=== PATIENT | female | born 1975 | race American Indian/Alaskan Native ===

== ENCOUNTER 2017-11-23 17:37 | Emergency (ER) | payer BC, OTHER ==
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
[2017-11-23 19:59] VITALS: BP 119/69
== END 2017-11-23 19:30 | disposition home or self-care (01) ==
LOC: FB.ED 17:37
DX: S63.630A Sprain of interphalangeal joint of right index finger, initial encounter (principal); F32.9 Major depressive disorder, single episode, unspecified; K21.9 Gastro-esophageal reflux disease without esophagitis; Z79.899 Other long term (current) drug therapy; Z88.2 Allergy status to sulfonamides; Z88.1 Allergy status to other antibiotic agents; Y04.8XXA Assault by other bodily force, initial encounter; Y07.01 Husband, perpetrator of maltreatment and neglect
CPT/HCPCS: 99283

== ENCOUNTER 2018-08-28 15:55 | Emergency (ER) | payer OTHER ==
--- NOTE | 2018-08-28 16:27 | EDM.PDOC ---
ED HPI GENERAL MEDICAL PROBLEM - General Chief Complaint: General Stated Complaint: HALLUCINATIONS Time Seen by Provider: 08/28/18 16:00 Source of Information: Reports: Patient, EMS, Old Records History Limitations: Reports: Altered Mental Status - History of Present Illness INITIAL COMMENTS - FREE TEXT/NARRATIVE: Юлия comes into [facility] ED with reported visual hallucinations (worms crawling on face) and concerns these may be related to medications including gabapentin or respiradone. She has a PMH of polysubstance abuse including meth and cannabis. There is no reported head injury or LOC, seizure disorder, although there is reported chronic pain. [facility], no records available. A collateral source reported by phone that she moves around and has been diagnosed schizophrenia in the past. She has no immediate family available, and is not a reliable historian. - Related Data Allergies Allergy/AdvReac Type Severity Reaction Status Date / Time Sulfa (Sulfonamide Allergy Rash Verified 08/28/18 23:29 Antibiotics) Abilify Allergy Rash Uncoded 01/16/16 01:32 Latuda Allergy Rash Uncoded 01/16/16 01:32 Home Meds: Home Meds Escitalopram [Lexapro] 40 mg PO DAILY 11/23/17 [History] Lisinopril 20 mg PO DAILY 11/23/17 [History] OLANZapine [Zyprexa] 15 mg PO DAILY 11/23/17 [History] Omeprazole 20 mg PO DAILY 11/23/17 [History] Past Medical History HEENT History: Reports: Other (See Below) Other HEENT History: eye glasses Cardiovascular History: Reports: Hypertension Gastrointestinal History: Reports: GERD 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: Psychiatric History: Reports: Depression - Infectious Disease History Infectious Disease History: Reports: Chicken Pox - Past Surgical History GI Surgical History: Reports: Other (See Below) Female Surgical History: Reports: Section Social & Family History - Family History Family Medical History: Noncontributory - Caffeine Use Caffeine Use: Reports: None ED ROS GENERAL - Review of Systems Review Of Systems: Unable To Obtain ED EXAM, GENERAL - Physical Exam Exam: See Below Exam Limited By: Altered Mental Status General Appearance: Alert, WD/WN, Anxious Eye Exam: Bilateral Eye: EOMI, Normal Inspection, PERRL Ears: Normal External Exam Nose: Normal Inspection Throat/Mouth: Normal Lips, Normal Oropharynx, Normal Voice, No Airway Compromise Head: Atraumatic, Normocephalic Neck: Normal Inspection, Supple Respiratory/Chest: No Respiratory Distress, Lungs Clear, No Accessory Muscle Use , Chest Non-Tender Cardiovascular: Regular Rate, Rhythm, No Murmur GI/Abdominal: Soft, Non-Tender, No Organomegaly, No Distention, No Mass (Female) Exam: Deferred Rectal (Female) Exam: Deferred Back Exam: Normal Inspection Extremities: Normal Inspection Neurological: Alert, CN II-XII Intact, No Motor/Sensory Deficits, Inattentive, Disoriented Psychiatric: Anxious, Other (hallucinations visual) Skin Exam: Warm, Dry, Intact, Normal Color Lymphatic: No Adenopathy Course - Vital Signs Text/Narrative:: Following initial assessment, a urine drug screen was positive for MDMA and Methamphetamine. Her CPK was elevated to 367 u/l, and IV fluids D5LR x 2 L was started with impending follow up CPK in 4 hours. Ativan 1 mg IV administered for agitation. Case will be managed by ED on-coming and signed out to him. Last Recorded V/S: Last Vital Signs Temp 36.1 C 08/29/18 17:40 Pulse 91 08/29/18 17:40 Resp 20 08/29/18 17:40 BP 140/85 08/29/18 17:40 Pulse Ox 100 08/29/18 17:40 - Orders/Labs/Meds Labs: Laboratory Tests 08/28/18 08/28/18 08/28/18 Range/Units 16:09 16:09 17:05 WBC (4.5-12.0) X10-3/uL RBC (3.23-5.20) x10(6)uL Hgb (11.5-15.5) g/dL Hct (30.0-51.3) % MCV (80-96) fL MCH (27.7-33.6) pg MCHC (32.2-35.4) g/dL RDW (11.5-15.5) % Plt Count (125-369) X10(3)uL MPV (7.4-10.4) fL Neut % (Auto) (46-82) % Lymph % (Auto) (13-37) % [place] % (Auto) (4-12) % Eos % (Auto) (1.0-5.0) % Baso % (Auto) (0-2) % Neut # (Auto) (1.6-8.3) # Lymph # (Auto) (0.6-5.0) # [place] # (Auto) (0.0-1.3) # Eos # (Auto) (0.0-0.8) # Baso # (Auto) (0.0-0.2) # Sodium (135-145) mmol/L Potassium (3.5-5.3) mmol/L Chloride (100-110) mmol/L Carbon Dioxide (21-32) mmol/L BUN (7-18) mg/dL Creatinine (0.55-1.02) mg/dL Est Cr Clr Drug Dosing Estimated GFR (MDRD) (>60) BUN/Creatinine Ratio (9-20) Glucose (80-116) mg/dL Calcium (8.6-10.2) mg/dL Total Bilirubin (0.1-1.3) mg/dL AST (5-25) IU/L ALT (12-36) U/L Alkaline Phosphatase (56-112) IU/L Creatine Kinase 329 H* (60-160) IU/L Total Protein (6.0-8.0) g/dL Albumin (3.5-5.2) g/dL Globulin g/dL Albumin/Globulin Ratio TSH, Ultra Sensitive (0.36-3.74) IU/mL Urine HCG, Qual Negative (NEGATIVE) Salicylates (<2.8) mg/dL Urine Opiates Screen Negative (NEGATIVE) Ur Oxycodone Screen Negative (NEGATIVE) Ur Propoxyphene Screen Negative (NEGATIVE) Acetaminophen (<2) ug/mL Ur Barbituates Screen Negative (NEGATIVE) Ur Tricyclics Screen Negative (NEGATIVE) Ur Phencyclidine Scrn Negative (NEGATIVE) Ur Amphetamine Screen Positive H (NEGATIVE) Urine MDMA Screen Positive H (NEGATIVE) U Benzodiazepines Scrn Negative (NEGATIVE) U Cocaine Metab Screen Negative (NEGATIVE) U Marijuana (THC) Screen Negative (NEGATIVE) Ethyl Alcohol (<0.03) % 08/28/18 08/28/18 08/28/18 Range/Units 17:05 17:05 17:05 WBC 7.9 (4.5-12.0) X10-3/uL RBC 4.80 (3.23-5.20) x10(6)uL Hgb 11.2 L (11.5-15.5) g/dL Hct 34.4 (30.0-51.3) % MCV 71.7 L (80-96) fL MCH 23.2 L (27.7-33.6) pg MCHC 32.4 (32.2-35.4) g/dL RDW 17.7 H (11.5-15.5) % Plt Count 303 (125-369) X10(3)uL MPV 7.5 (7.4-10.4) fL Neut % (Auto) 65.1 (46-82) % Lymph % (Auto) 21.8 (13-37) % [place] % (Auto) 11.4 (4-12) % Eos % (Auto) 1 (1.0-5.0) % Baso % (Auto) 0 (0-2) % Neut # (Auto) 5.2 (1.6-8.3) # Lymph # (Auto) 1.7 (0.6-5.0) # [place] # (Auto) 0.9 (0.0-1.3) # Eos # (Auto) 0.1 (0.0-0.8) # Baso # (Auto) 0.0 (0.0-0.2) # Sodium 140 (135-145) mmol/L Potassium 3.2 L (3.5-5.3) mmol/L Chloride 103 (100-110) mmol/L Carbon Dioxide 26 (21-32) mmol/L BUN 9 (7-18) mg/dL Creatinine 1.0 (0.55-1.02) mg/dL Est Cr Clr Drug Dosing TNP Estimated GFR (MDRD) > 60 (>60) BUN/Creatinine Ratio 9.0 (9-20) Glucose 90 (80-116) mg/dL Calcium 8.4 L (8.6-10.2) mg/dL Total Bilirubin 0.5 (0.1-1.3) mg/dL AST 30 H (5-25) IU/L ALT 26 (12-36) U/L Alkaline Phosphatase 75 (56-112) IU/L Creatine Kinase (60-160) IU/L Total Protein 6.8 (6.0-8.0) g/dL Albumin 3.4 L (3.5-5.2) g/dL Globulin 3.4 g/dL Albumin/Globulin Ratio 1.0 TSH, Ultra Sensitive 1.16 (0.36-3.74) IU/mL Urine HCG, Qual (NEGATIVE) Salicylates (<2.8) mg/dL Urine Opiates Screen (NEGATIVE) Ur Oxycodone Screen (NEGATIVE) Ur Propoxyphene Screen (NEGATIVE) Acetaminophen (<2) ug/mL Ur Barbituates Screen (NEGATIVE) Ur Tricyclics Screen (NEGATIVE) Ur Phencyclidine Scrn (NEGATIVE) Ur Amphetamine Screen (NEGATIVE) Urine MDMA Screen (NEGATIVE) U Benzodiazepines Scrn (NEGATIVE) U Cocaine Metab Screen (NEGATIVE) U Marijuana (THC) Screen (NEGATIVE) Ethyl Alcohol < 0.03 (<0.03) % 08/28/18 08/28/18 Range/Units 17:05 21:05 WBC (4.5-12.0) X10-3/uL RBC (3.23-5.20) x10(6)uL Hgb (11.5-15.5) g/dL Hct (30.0-51.3) % MCV (80-96) fL MCH (27.7-33.6) pg MCHC (32.2-35.4) g/dL RDW (11.5-15.5) % Plt Count (125-369) X10(3)uL MPV (7.4-10.4) fL Neut % (Auto) (46-82) % Lymph % (Auto) (13-37) % [place] % (Auto) (4-12) % Eos % (Auto) (1.0-5.0) % Baso % (Auto) (0-2) % Neut # (Auto) (1.6-8.3) # Lymph # (Auto) (0.6-5.0) # [place] # (Auto) (0.0-1.3) # Eos # (Auto) (0.0-0.8) # Baso # (Auto) (0.0-0.2) # Sodium (135-145) mmol/L Potassium (3.5-5.3) mmol/L Chloride (100-110) mmol/L Carbon Dioxide (21-32) mmol/L BUN (7-18) mg/dL Creatinine (0.55-1.02) mg/dL Est Cr Clr Drug Dosing Estimated GFR (MDRD) (>60) BUN/Creatinine Ratio (9-20) Glucose (80-116) mg/dL Calcium (8.6-10.2) mg/dL Total Bilirubin (0.1-1.3) mg/dL AST (5-25) IU/L ALT (12-36) U/L Alkaline Phosphatase (56-112) IU/L Creatine Kinase 241 H (60-160) IU/L Total Protein (6.0-8.0) g/dL Albumin (3.5-5.2) g/dL Globulin g/dL Albumin/Globulin Ratio TSH, Ultra Sensitive (0.36-3.74) IU/mL Urine HCG, Qual (NEGATIVE) Salicylates 3.0 (<2.8) mg/dL Urine Opiates Screen (NEGATIVE) Ur Oxycodone Screen (NEGATIVE) Ur Propoxyphene Screen (NEGATIVE) Acetaminophen < 2 L (<2) ug/mL Ur Barbituates Screen (NEGATIVE) Ur Tricyclics Screen (NEGATIVE) Ur Phencyclidine Scrn (NEGATIVE) Ur Amphetamine Screen (NEGATIVE) Urine MDMA Screen (NEGATIVE) U Benzodiazepines Scrn (NEGATIVE) U Cocaine Metab Screen (NEGATIVE) U Marijuana (THC) Screen (NEGATIVE) Ethyl Alcohol (<0.03) % Meds: Medications Discontinued Medications Generic Name Dose Route Start Last Admin Trade Name Freq PRN Reason Stop Dose Admin Dextrose/Lactated Ringer's 2,000 mls @ 500 mls/hr 08/28/18 17:45 Dextrose 5%-Lr IV ASDIRECTED GORAN Dextrose/Lactated Ringer's 1,000 mls @ 500 mls/hr 08/28/18 18:47 08/28/18 18: 45 Dextrose 5%-Lactated Ringers IV 500 mls/hr ASDIRECTED GORAN Administration Dextrose/Lactated Ringer's 1,000 mls @ 500 mls/hr 08/28/18 20:45 08/28/18 20: 30 Dextrose 5%-Lactated Ringers IV 500 mls/hr ASDIRECTED GORAN Administration Lorazepam 1 mg 08/28/18 18:34 08/28/18 18:45 Ativan IVPUSH 08/28/18 18:35 1 mg ONETIME ONE Administration Olanzapine 10 mg 08/28/18 22:40 08/29/18 01:39 Zyprexa PO 08/28/18 22:41 Not Given ONETIME ONE Olanzapine 10 mg 08/29/18 11:18 08/29/18 11:25 Zyprexa IM 08/29/18 11:19 10 mg ONETIME ONE Administration Potassium Chloride 40 meq 08/28/18 22:40 08/29/18 01:43 Klor-Con M20 PO 08/28/18 22:41 40 meq ONETIME ONE Administration Potassium Chloride Confirm 08/29/18 01:42 08/29/18 06:40 Klor-Con M20 Administered 08/29/18 01:43 Not Given Dose 40 meq .ROUTE .STK-MED ONE Sodium Chloride 10 ml 08/28/18 17:37 08/28/18 18:40 Saline Flush FLUSH 10 ml ASDIRECTED PRN Administration Keep Vein Open Departure - Departure Time of Disposition: 01:00 Disposition: DC/Tfer to Psych Hosp/Unit 65 Condition: Poor Clinical Impression: Methamphetamine-induced psychotic disorder - Discharge Information *PRESCRIPTION DRUG MONITORING PROGRAM REVIEWED*: No *COPY OF PRESCRIPTION DRUG MONITORING REPORT IN PATIENT SAMANTA: No Instructions: Chemical Dependency Referrals: PCP,Not In Area [Primary Care Provider] - Forms: ED Department Discharge Additional Instructions: Continue your regularly prescribed medications. Do not use street drugs or methamphetamine. See Dr Lu tomorrow and discuss arrangements for a drug treatment program. Stay in a safe environment. Return to Emergency Department if you do not feel safe towards yourself or towards others. - Problem List & Annotations (1) Methamphetamine-induced psychotic disorder SNOMED Code(s): 99259107033683882 Code(s): F15.959 - OTH STIMULANT USE, UNSP W STIM-INDUCE PSYCH DISORDER, UNSP Status: Acute Annotation/Comment:: Per oncoming ED provider. - Problem List Review Problem List Initiated/Reviewed/Updated: Yes - Assessment/Plan Plan: Per oncoming ED provider.
[2018-08-28] MEDS ORDERED: Sodium Chloride 0.9% 10 ML Syringe FLUSH PRN (17:37)
[2018-08-28] MEDS ORDERED: LORazepam 2 MG/ML SDV IVPUSH ONE (18:34)
[2018-08-28] MEDS ORDERED: Dextrose 5%-Lactated Ringers 1,000 ML IV SCH ×2 (18:47→20:45)
[2018-08-28 20:28] LABS: ACETAMINOPHEN < 2 ug/mL (<2)
[2018-08-28] MEDS ORDERED: Potassium Chloride 20 MEQ Tab.ER PO ONE (22:40)
[2018-08-28] MEDS ORDERED: OLANZapine 5 MG Tab PO ONE (22:40)
--- NOTE | 2018-08-29 01:09 | PCM.SN ---
- Free Text/Narrative Note: 08-29-18 1:04 AM pt has been here 9 hours. Seen and evaluated earlier by Dr Jc. Pt is reported to be homeless, was agitated on arrival and given Ativan 1 mg IV and then slept most of the rest of the time. Now awake and says she is feeling better. Had hallucinations when she arrived (bugs crawling out of her eyes) altho denies any now. Says she is no longer on Zyprexa, that she is taking respiridone that is rx'ed by Dr Lu form the [facility]. When asked whether she has a place to stay, she does not answer. States she has been using meth daily for the past several years, that meth "messes with my mind." Not requesting drug treatment or further intervention. No SI/HI.
[2018-08-29] MEDS ORDERED: Potassium Chloride 20 MEQ Tab.ER ONE (01:42)
[2018-08-29] MEDS ORDERED: OLANZapine 10 MG Vial IM ONE (11:18)
[2018-08-29 18:29] VITALS: BP 140/85
== END 2018-08-29 17:53 ==
LOC: FB.ED 15:55
DX: F15.151 Other stimulant abuse with stimulant-induced psychotic disorder with hallucinations (principal); I10 Essential (primary) hypertension; F32.9 Major depressive disorder, single episode, unspecified; Z88.2 Allergy status to sulfonamides; Z88.8 Allergy status to other drugs, medicaments and biological substances; Z79.899 Other long term (current) drug therapy
CPT/HCPCS: 36415; 80053; 80305; 81025; 82550; 84443; 85025; 96360; 96361; 96372; 99285; A9270; G0480; J2060; J7042; S0166